=== PATIENT | female | born 1975 | race African-American/Black ===

== ENCOUNTER 2017-03-20 12:28 | Emergency (ER) | payer SELFPAY ==
[~2017-03-20 12:28] MED LIST: IBUP600 PO; MULTCAP OR; PERC5TAB12 PO
[2017-03-20 12:31] VITALS: BP 178/82; PULSE 82; RESP 16; TEMP 98.2; O2SAT 98
--- NOTE | 2017-03-20 13:12 | PD ---
HPI Chief Complaint: Eye Problems/Injury Time Seen by Provider: 12:40 Travel History International Travel<30 days: No Contact w/Intl Traveler<30days: No Traveled to known affect area: No History of Present Illness HPI Patient comes in complaining of bilateral pruritic eyes, watering, and discomfort ongoing for 2 days. Patient denies any foreign body sensation, eyes matting shut, trauma, change in vision, contact use, fevers, or being around anyone else with similar. Patient tried using [id number] Visine with no improvement of symptoms. Denies anything making it worse. Patient does use Flonase for allergies reports taking this regularly. Patient does report occasional left frontal headache with this intermittently comes and goes. History Past Medical Histgory Hx Cancer: No Social History Alcohol Use: No Tobacco Use: No Allergies-Medications (Allergen,Severity, Reaction): Coded Allergies: No Known Allergies (Verified , 06/27/14) Reported Meds & Prescriptions Reported Meds & Active Scripts Active Percocet 5-325 mg (Oxycodone/Acetaminophen) 1 Tab Tab 1 Tab PO Q4H PRN Motrin 600 Mg Tab (Ibuprofen) 600 Mg Tab 600 Mg PO Q6H PRN Reported Multi For Her (Multiple Vitamins W/ Minerals) Cap 1 OR Review of Systems Except as stated in HPI: all other systems reviewed are Neg Physical Exam Narrative GENERAL: Well-developed, overly nourished, in no acute distress, and non-ill appearing. SKIN: Focused skin assessment warm and dry. HEAD: Atraumatic. Normocephalic. EYES: Pupils equal and round. EOMI. No scleral icterus. No injection or drainage. There is no evidence of iritis, glaucoma, preseptal cellulitis, periorbital or orbital cellulitis. No hyphema. Eyelid was everted with no foreign body noted. No tenderness bilateral temporal arteries to palpation. ENT: No nasal bleeding or discharge. Mucous membranes pink and moist. No tenderness to facial sinuses to palpation. NECK: Trachea midline. Supple. No nuclear rigidity. RESPIRATORY: No accessory muscle use. No respiratory distress. MUSCULOSKELETAL: No obvious deformities. No clubbing. No cyanosis. No edema. Full range of motion. NEUROLOGICAL: Awake and alert. No obvious cranial nerve deficits. Motor grossly within normal limits. Normal speech. PSYCHIATRIC: Appropriate mood and affect; insight and judgment normal. Data Data Last Documented VS Vital Signs Date Time Temp Pulse Resp B/P (MAP) Pulse Ox O2 Delivery O2 Flow Rate FiO2 03/20/17 12:31 98.2 82 16 178/82 (114) 98 MDM Medical Screen Exam Complete: Yes Emergency Medical Condition: No Narrative Course History and physical exam findings are not consistent with an emergent medical condition. She was given the option of receiving additional care, but has declined. Therefore the appropriate counseling recommendations were discussed with the patient and she was instructed to follow-up with her primary care physician as soon as possible for reevaluation. Patient was also informed of community resources from which she can obtain additional care. She is agreeable and verbalizes an understanding of the proposed plan. The patient states she will immediately return to the emergency department if her current complaints do not improve, new symptoms arise, or emergent condition develops. Patient ambulated out of the emergency department without difficulty. Primary Impression: Encounter for medical screening examination Disposition: [facility]-ED USE ONLY Condition: Stable uRben Ma Mar 20, 2017 13:12
== END 2017-03-20 12:55 | disposition left against medical advice (07) ==
LOC: NEPK 12:28
DX: Z00.00 Encounter for general adult medical examination without abnormal findings (principal)
CPT/HCPCS: 99281